=== PATIENT | female | born 1990 | race Caucasian/White ===

== ENCOUNTER 2020-01-05 08:04 | Emergency (ER) | payer OTHER ==
[~2020-01-05] VITALS: Ht 154.9 cm; Wt 62.1 kg
[~2020-01-05 08:04] MED LIST: IBUP200T64 PO; imitrex
[2020-01-05] MEDS ORDERED: DIPHENHYDRAMINE 50 MG/ML, 1ML IVPush ONE (08:30)
[2020-01-05] MEDS ORDERED: SODIUM CHLORIDE 0.9% 1,000ML IVBOLUS ONE (08:30)
[2020-01-05] MEDS ORDERED: PROCHLORPERAZINE 5 MG/ML, 2ML IVPush ONE (08:30)
[2020-01-05] MEDS ORDERED: PROCHLORPERAZINE 5 MG/ML, 2ML ONE (08:49)
[2020-01-05] MEDS ORDERED: DIPHENHYDRAMINE 50 MG/ML, 1ML ONE (08:49)
--- NOTE | 2020-01-05 09:03 | NUR ---
started piv , no distress,
--- NOTE | 2020-01-05 09:54 | NUR ---
PT STATED NO HEADACH,
[2020-01-05 10:18] VITALS: BP 106/62
== END 2020-01-05 10:29 | disposition home or self-care (01) ==
LOC: ED 08:49
DX: G43.001 Migraine without aura, not intractable, with status migrainosus (principal); R11.0 Nausea; H53.149 Visual discomfort, unspecified; Z98.51 Tubal ligation status
CPT/HCPCS: 96361; 96374; 96375; 99284; J0780; J1200; J7030

== ENCOUNTER 2020-02-01 21:45 | Emergency (ER) | payer OTHER ==
[~2020-02-01] VITALS: Ht 152.4 cm; Wt 69.5 kg
[2020-02-01] MEDS ORDERED: DIPHENHYDRAMINE 50 MG/ML, 1ML ONE (22:03)
[2020-02-01] MEDS ORDERED: PROCHLORPERAZINE 5 MG/ML, 2ML ONE (22:03)
[2020-02-01] MEDS ORDERED: KETOROLAC 30 MG/1 ML ONE (22:03)
[2020-02-01] MEDS ORDERED: KETOROLAC 30 MG/1 ML IVPush ONE (22:30)
[2020-02-01] MEDS ORDERED: DIPHENHYDRAMINE 50 MG/ML, 1ML IVPush ONE (22:30)
[2020-02-01] MEDS ORDERED: SODIUM CHLORIDE 0.9% 1,000ML IVBOLUS ONE (22:30)
[2020-02-01] MEDS ORDERED: PROCHLORPERAZINE 5 MG/ML, 2ML IVPush ONE (22:30)
--- NOTE | 2020-02-01 22:48 | NUR ---
Sleeping, RR equal and unlabored. IVF infused feels better. Waiting for dispo. VSS
[2020-02-01 22:49] VITALS: BP 125/74
--- NOTE | 2020-02-01 22:55 | NUR ---
IV dc cath intact, 1liter bolus infused. Pt reports feeling better, baker gone.
[2020-02-01] MEDS ORDERED: SODIUM CHLORIDE FLUSH 10ML SYR IVF ONE (23:00)
== END 2020-02-01 23:08 | disposition home or self-care (01) ==
LOC: ED 22:59
DX: G43.909 Migraine, unspecified, not intractable, without status migrainosus (principal); R11.2 Nausea with vomiting, unspecified; Z98.51 Tubal ligation status
CPT/HCPCS: 96361; 96374; 96375; 99284; J0780; J1200; J1885; J7030; 96372

== ENCOUNTER 2020-02-20 20:23 | Emergency (ER) | payer OTHER ==
[~2020-02-20] VITALS: Ht 152.4 cm; Wt 60.5 kg
--- NOTE | 2020-02-20 20:32 | NUR ---
CC OF N/V X 1 DAY WITH GLF AT HOME. RECENTLY SEEN HERE FOR SAME. SPOUSE AT BEDSIDE
--- NOTE | 2020-02-20 20:38 | NUR ---
+ N/V AND SENSITIVITY TO LIGHTS/SOUNDS, HX OF MIGRAINES.
[2020-02-20] MEDS ORDERED: PROMETHAZINE 25 MG/ML, 1ML ONE (20:56)
[2020-02-20] MEDS ORDERED: DIPHENHYDRAMINE 50 MG/ML, 1ML ONE (20:57)
[2020-02-20] MEDS ORDERED: SUMATRIPTAN 6MG/0.5ML SQ ONE ×2 (20:57→21:00)
[2020-02-20] MEDS ORDERED: KETOROLAC 30 MG/1 ML ONE (20:57)
[2020-02-20] MEDS ORDERED: DIPHENHYDRAMINE 50 MG/ML, 1ML IVPush ONE (21:00)
[2020-02-20] MEDS ORDERED: KETOROLAC 30 MG/1 ML IVPush ONE (21:00)
[2020-02-20] MEDS ORDERED: PROMETHAZINE 25 MG/ML, 1ML IM ONE (21:00)
--- NOTE | 2020-02-20 21:18 | NUR ---
ONE EPISODE OF VOMITING APPROX 75 MLS. PT MEDICATED PER EMAR. CLOSING EYES AFTER VOMITING AND RESTING. SPOUSE AT BEDSIDE
--- NOTE | 2020-02-20 21:58 | NUR ---
PT SLEEPING. REPORTS NO VOMITING.
[2020-02-20 22:30] VITALS: BP 129/84
== END 2020-02-20 23:03 | disposition home or self-care (01) ==
LOC: ED 21:19
DX: G43.009 Migraine without aura, not intractable, without status migrainosus (principal); R11.2 Nausea with vomiting, unspecified; Z98.51 Tubal ligation status
CPT/HCPCS: 96372; 96374; 96375; 99284; J1200; J1885; J2550; J3030

== ENCOUNTER 2020-03-01 19:47 | Emergency (ER) | payer OTHER ==
[~2020-03-01] VITALS: Ht 152.4 cm; Wt 65.0 kg
--- NOTE | 2020-03-01 20:16 | NUR ---
CC OF CONTE SINCE 11 AM TODAY 07/23 IN SEVERITY. PT LAYING ON SIDE IN GURNEY MOANING BUT ABLE TO ANSWER QUESTIONS, LIGHTS TURNED OFF FOR COMFORT. AND SON AT BEDSIDE
[2020-03-01] MEDS ORDERED: PROCHLORPERAZINE 5 MG/ML, 2ML IVPush ONE (20:30)
[2020-03-01] MEDS ORDERED: DIPHENHYDRAMINE 50 MG/ML, 1ML IVPush ONE (20:30)
[2020-03-01] MEDS ORDERED: KETOROLAC 30 MG/1 ML IVPush ONE (20:30)
[2020-03-01] MEDS ORDERED: PROCHLORPERAZINE 5 MG/ML, 2ML ONE (20:44)
[2020-03-01] MEDS ORDERED: KETOROLAC 30 MG/1 ML ONE (20:44)
[2020-03-01] MEDS ORDERED: DIPHENHYDRAMINE 50 MG/ML, 1ML ONE (20:44)
--- NOTE | 2020-03-01 21:03 | NUR ---
PT [facility] AND IS ON MEDICATION FOR IT BUT IS UNSURE OF WHAT MEDICATION IS.
[2020-03-01 21:15] LABS: BASOPHILS % (AUTO) 1 % (0-1); EOSINOPHILS % (AUTO) 1 % (1-7); LYMPHOCYTES % (AUTO) 60 % (22-44); MEAN CORPUSCULAR HEMOGLOBIN 23.3 pg (27.0-34.8); MEAN CORPUSCULAR HGB CONC 32.1 g/dL (32.4-35.8); MEAN PLATELET VOLUME 7.5 fL (7.4-10.4); MONOCYTES % (AUTO) 6 % (2-9); NEUTROPHILS % (AUTO) 33 % (42-75); PLATELET COUNT 367 x10^3/uL (130-400); RED BLOOD COUNT 4.84 x10^6/uL (3.82-5.3); RED CELL DISTRIBUTION WIDTH 19.6 % (9.6-15.2)
[2020-03-01 21:23] LABS: ALBUMIN 4.1 g/dL (3.4-5.0); ANION GAP 6 mmol/L (5-15); CHLORIDE 109 mmol/L (98-107)
[2020-03-01 21:29] LABS: CREATININE 0.73 mg/dL (0.55-1.02)
[2020-03-01 21:49] LABS: MD MORPH REVIEW ONLY
[2020-03-01 21:50] LABS: ANISOCYTOSIS 1+
[2020-03-01 21:51] LABS: <PLATELET ESTIMATE> ADEQUATE; <PLT MORPHOLOGY> NORMAL PLT MORPH; HYPOCHROMIA 1+; MICROCYTOSIS 1+; OVALOCYTES 1+; POLYCHROMASIA 1+
[2020-03-01 23:02] VITALS: BP 124/77
== END 2020-03-01 23:05 | disposition home or self-care (01) ==
LOC: ED 20:19
DX: R51.9 Headache, unspecified (principal)
CPT/HCPCS: 36415; 70450; 80048; 82040; 84703; 85025; 96374; 96375; 99285; J0780; J1200; J1885

== ENCOUNTER 2020-03-13 09:25 | Emergency (ER) | payer OTHER ==
[~2020-03-13] VITALS: Ht 152.4 cm; Wt 55.0 kg
--- NOTE | 2020-03-13 09:40 | NUR ---
SIDING INSTALLER PHONE USED FOR TRIAGE. INT # [id number]
--- NOTE | 2020-03-13 09:50 | NUR ---
First contact with pt. Pt c/o migraine CONTE x3 days, hx migraines, no relief with sumitriptan at home. Pt reports 10/10 CONTE, photophobia, nausea. Pt placed in gown, positioned for comfort in bed. Continuous oxygen and BP monitors applied, all safety measures observed. Radha LAGUNA at bedside to evaluate pt.
[2020-03-13] MEDS ORDERED: KETOROLAC 30 MG/1 ML ONE (09:53)
[2020-03-13] MEDS ORDERED: DIPHENHYDRAMINE 50 MG/ML, 1ML ONE (09:53)
[2020-03-13] MEDS ORDERED: PROCHLORPERAZINE 5 MG/ML, 2ML ONE (09:53)
--- NOTE | 2020-03-13 09:58 | NUR ---
Pt medicated per MAR for 10 CONTE. Lights in room dimmed for pt comfort.
[2020-03-13] MEDS ORDERED: SODIUM CHLORIDE FLUSH 10ML SYR IVF ONE (10:00)
[2020-03-13] MEDS ORDERED: DIPHENHYDRAMINE 50 MG/ML, 1ML IVPush ONE (10:00)
[2020-03-13] MEDS ORDERED: SODIUM CHLORIDE 0.9% 1,000ML IVBOLUS ONE (10:00)
[2020-03-13] MEDS ORDERED: PROCHLORPERAZINE 5 MG/ML, 2ML IVPush ONE (10:00)
[2020-03-13] MEDS ORDERED: KETOROLAC 30 MG/1 ML IVPush ONE (10:00)
[2020-03-13] MEDS ORDERED: SUMA25TA4 PO (10:07)
--- NOTE | 2020-03-13 10:33 | NUR ---
Pt resting in bed with eyes closed, resp even and unlabored. Pt awakens easily to this RN entering room. Pt reports CONTE and nausea resolved. Pt provided warm blanket per request, denies other needs.
--- NOTE | 2020-03-13 11:38 | NUR ---
Pt resting in bed, JACKIE, reports she is ready to go home.
[2020-03-13 11:40] VITALS: BP 115/74
--- NOTE | 2020-03-13 11:51 | NUR ---
TASK RN: PT VERBALIZED UNDERSTANDING OF DC INSTRUCTIONS, VSS, NADN. AMBULATORY W/ A STEADY GAIT TO DC DESK.
== END 2020-03-13 11:53 | disposition home or self-care (01) ==
LOC: ED 10:57
DX: G43.909 Migraine, unspecified, not intractable, without status migrainosus (principal); R11.2 Nausea with vomiting, unspecified; H53.149 Visual discomfort, unspecified
CPT/HCPCS: 96361; 96374; 96375; 99284; J0780; J1200; J1885; J7030

== ENCOUNTER 2020-07-11 03:28 | Emergency (ER) | payer OTHER ==
[~2020-07-11] VITALS: Ht 152.4 cm; Wt 63.9 kg
[~2020-07-11 03:28] MED LIST changes: +SUMA25TA4 PO
[2020-07-11] MEDS ORDERED: KETOROLAC 30 MG/1 ML ONE (03:57)
[2020-07-11] MEDS ORDERED: DIPHENHYDRAMINE 50 MG/ML, 1ML ONE (03:57)
[2020-07-11] MEDS ORDERED: PROCHLORPERAZINE 5 MG/ML, 2ML ONE (03:57)
[2020-07-11] MEDS ORDERED: DIPHENHYDRAMINE 50 MG/ML, 1ML IVPush ONE (04:00)
[2020-07-11] MEDS ORDERED: PROCHLORPERAZINE 5 MG/ML, 2ML IVPush ONE (04:00)
[2020-07-11] MEDS ORDERED: KETOROLAC 30 MG/1 ML IVPush ONE (04:00)
[2020-07-11 06:08] VITALS: BP 120/75
== END 2020-07-11 06:10 | disposition home or self-care (01) ==
LOC: ED 05:41
DX: G43.009 Migraine without aura, not intractable, without status migrainosus (principal); R11.2 Nausea with vomiting, unspecified
CPT/HCPCS: 96374; 96375; 99284; J0780; J1200; J1885

== ENCOUNTER 2020-08-12 11:56 | Emergency (ER) | payer OTHER ==
[~2020-08-12] VITALS: Ht 152.4 cm; Wt 63.2 kg
[2020-08-12] MEDS ORDERED: ACETAMINOPHEN 500 MG TABLET ONE (12:52)
[2020-08-12] MEDS ORDERED: METOCLOPRAMIDE 5 MG/ML, 2ML ONE (12:52)
[2020-08-12] MEDS ORDERED: KETOROLAC 30 MG/1 ML ONE (12:52)
[2020-08-12] MEDS ORDERED: DIPHENHYDRAMINE 50 MG/ML, 1ML ONE (12:52)
[2020-08-12] MEDS ORDERED: PROCHLORPERAZINE 5 MG/ML, 2ML ONE (12:52)
--- NOTE | 2020-08-12 12:55 | NUR ---
medicated per emar for genralized baker rated at 10/10
[2020-08-12] MEDS ORDERED: KETOROLAC 30 MG/1 ML IVPush ONE (13:00)
[2020-08-12] MEDS ORDERED: METOCLOPRAMIDE 5 MG/ML, 2ML IVPush ONE (13:00)
[2020-08-12] MEDS ORDERED: SODIUM CHLORIDE FLUSH 10ML SYR IVF ONE (13:00)
[2020-08-12] MEDS ORDERED: DIPHENHYDRAMINE 50 MG/ML, 1ML IVPush ONE (13:00)
--- NOTE | 2020-08-12 13:11 | NUR ---
REPORT OF PT FROM DEBBIE RAMIREZ AND ASSUMING CARE OF PT AT THIS TIME.
--- NOTE | 2020-08-12 13:16 | NUR ---
report to gisela overton
--- NOTE | 2020-08-12 13:19 | NUR ---
baker improved. now resting pain free
--- NOTE | 2020-08-12 13:52 | NUR ---
REPORT OF PT TO DEBBIE OSBORNE. ALL QUESTIONS ANSWERED.
[2020-08-12 15:46] VITALS: BP 132/78
== END 2020-08-12 15:48 | disposition home or self-care (01) ==
LOC: ED 13:35
DX: G43.019 Migraine without aura, intractable, without status migrainosus (principal); R11.2 Nausea with vomiting, unspecified
CPT/HCPCS: 96374; 96375; 99284; J1200; J1885; J2765

== ENCOUNTER 2020-11-08 06:00 | Emergency (ER) | payer OTHER ==
[~2020-11-08] VITALS: Ht 152.4 cm; Wt 64.0 kg
[2020-11-08] MEDS ORDERED: ACETAMINOPHEN 500 MG TABLET ONE (07:27)
[2020-11-08] MEDS ORDERED: ACETAMINOPHEN 500 MG TABLET PO ONE (07:30)
[2020-11-08 07:33] VITALS: BP 112/66
--- NOTE | 2020-11-08 07:36 | NUR ---
Patient given discharge instructions and prescriptions and they have confirmed that they understand the instructions. Patient ambulatory with steady gait. NAD, all questions answered appropriately, denies additional needs at this time. No personal belongings left in room after discharge.
[2020-11-08 08:06] LABS: RAPID INFLUENZA A Negative (Negative); RAPID INFLUENZA B Negative (Negative)
== END 2020-11-08 07:37 | disposition home or self-care (01) ==
LOC: ED 06:50
DX: B34.9 Viral infection, unspecified (principal); Z20.822 Contact with and (suspected) exposure to COVID-19
CPT/HCPCS: 87400; 99283; U0003; U0005